=== PATIENT | female | born 1965 | race Caucasian/White ===

== ENCOUNTER 2018-08-27 20:30 | Inpatient (IN) ==
[2018-08-27] MEDS ORDERED: NS 1000 ML 1,000 ML IV ONE ×2 (21:12→22:30)
[2018-08-27] MEDS ORDERED: ZOFRAN INJ 4 MG VIAL ONE (21:15)
[2018-08-27] MEDS ORDERED: ZOFRAN INJ 4 MG VIAL IVP ONE (21:18)
[2018-08-27 21:28] LABS: BILIRUBIN,URINE NEGATIVE (NEGATIVE); BLOOD/HEMOGLOBIN,URINE 4+ (NEGATIVE); GLUCOSE, URINE NEGATIVE (NEGATIVE); KETONES,URINE NEGATIVE (NEGATIVE); LEUKOCYTE ESTERASE ,URINE 3+ (NEGATIVE); NITRITES,URINE POSITIVE (NEGATIVE); PROTEIN,URINE 2+ (NEGATIVE); UROBILINOGEN,URINE NORMAL (NORMAL)
[2018-08-27 21:28] LABS: BASOPHILS # (AUTO) 0.1 X10^3/uL (0.0-0.1); BASOPHILS % (AUTO) 0.7 % (0.2-1.0); EOSINOPHILS % (AUTO) 0.2 % (0.9-2.9); HEMATOCRIT 47.5 % (36.0-47.0); HEMOGLOBIN 15.9 g/dL (12.0-16.0); LYMPHOCYTES # (AUTO) 2.4 X10^3/uL (1.3-2.9); LYMPHOCYTES % (AUTO) 11.9 % (21.0-51.0); MEAN CORPUSCULAR HEMOGLOBIN 29.5 pg (27.0-34.0); MEAN CORPUSCULAR HGB CONC 33.6 g/dL (33.0-35.0); MEAN CORPUSCULAR VOLUME 87.9 fL (80.0-100.0); MONOCYTES # (AUTO) 1.3 x10^3/uL (0.3-0.8); MONOCYTES % (AUTO) 6.6 % (0.0-13.0); NEUTROPHILS # (AUTO) 16.2 x10^3/uL (2.2-4.8); NEUTROPHILS % (AUTO) 80.6 % (42.0-75.0); PLATELET COUNT 257 X10^3/uL (150.0-450.0); RED CELL DISTRIBUTION WIDTH 15.8 % (11.6-16.5); WHITE BLOOD COUNT 20.1 X10^3/uL (3.6-10.0)
[2018-08-27 21:32] VITALS: BMI 38.2
[2018-08-27 21:33] LABS: APPEARANCE,URINE HAZY (CLEAR); BACTERIA,URINE 2+ /HPF (NEGATIVE); COLOR,URINE YELLOW (YELLOW); SQUAMOUS EPITHELIAL CELL,UR RARE /HPF (NEGATIVE)
[2018-08-27 21:46] LABS: CARBON DIOXIDE 22.3 mmol/L (21-32); CREATININE 1.27 mg/dL (0.55-1.02); TROPONIN I 0.34 ng/mL (0-1.5)
[2018-08-27 21:49] LABS: ALBUMIN 3.3 g/dL (3.4-5.0); CKMB % 1.7 % (<4); COR CA(FOR HYPOALB) 9.6 mg/dL (8.5-10.1); CREATINE KINASE MB 1.2 ng/mL (0-4.0); TOTAL PROTEIN 7.8 g/dL (6.4-8.2)
[2018-08-27 22:06] LABS: LACTIC ACID 1.4 mmol/L (0.4-2.0)
--- NOTE | 2018-08-27 22:58 | DR.DIZZY ---
HPI Time seen Time Seen by Provider: 08/27/18 22:48 PCP Primary Care Physician: ELIANE KHAN NP-[place] Complaint Chief Complaint Doctor Comments: Patient presents with complaint of dizziness all day. Nearly passed out today. Admits to ringing in the ears, chills,fever temp of 104. Denies diarrhea. Chief Complaint:: "ALL DAY TODAY I HAVE BEEN DIZZY, HAVING RINGING AND THIS ROARING IN MY EARS, NEARLY PASSED OUT. I TOOK A NAP AFTER WORK, WOKE UP FREEZING TO , MY TEMPERATURE WAS 104.0. I TOOK IBUPROFEN AROUND 1800. I ALSO HAD A KIDNEY STONE OR KIDNEY INFECTION LAST WEEK. I HAVE BEEN HAVING BACK PAIN TODAY TOO." Self Treatment fo Chief Complaint: IBUPROFEN Source History Provided: Patient Mode of Arrival Mode of Arrival: Ambulatory Timing Onset of Chief Complaint: 08/27/18 Symptom Onset: Known Onset of Symptoms Start Date: 08/27/18 Location of Weakness Weakness Location: Generalized Context History of: None Stroke Symptoms: None Associated signs and symptoms Associated Signs and Symptoms: Near Syncope, Vertigo, Weak, Fever, Nausea and Vomiting PMH PMH Past Medical History: Yes Past Medical History: Depression, Hypertension, Hypothyroidism and Kidney Stones Past Surgical History: Yes 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 Surgical History Comment: TUBALIGATION Family History History of Family Medical Conditions: Yes Family Medical History: [place], Coronary Artery Disease and Hypertension Social History Does patient currently use any type of tobacco product: Yes Have you used tobacco products in the last 12 months: Yes Type of Tobacco Use: Cigarettes How many years tobacco product used: 40 Does any household member use tobacco: Yes Alcohol Use: None Do you use any recreational Drugs:: No Lives Where: Home infectious screening In the last 2 months have you had wt loss of >10#?: NO Have you had fever, night sweats or hemotysis?: No Have you traveled outside the country in the last 6 months?: No Isolation: Standard ROS Review of Systems Constitutional: See HPI, Chills and Weakness Eyes: No Symptoms Reported ENTM: No Symptoms Reported and Ear Pain; negative Nose Discharge and Nose Congestion Respiratoy: No Symptoms Reported, Orthopnea and Short of Breath Cardiovascular: No Symptoms Reported Gastrointestinal/Abdominal: No Symptoms Reported Neurological: Headache and Tingling Musculoskeletal: Joint Swelling and Muscle Pain Integumentary: No Symptoms Reported Hematologic/Lymphatic: No Symptoms Reported Endocrine: No Symptoms Reported Psychiatric: No Symptoms Reported All Other Systems: Reviewed and Negative PE Vital Signs Vitals: Temperature 98.3 F Pulse Rate [Apical] 76 Pulse Rate 76 Respiratory Rate 15 Blood Pressure [Left Arm] 126/76 Blood Pressure 126/76 O2 Sat by Pulse Oximetry 96 General Limitations: No Limitations General Appearance: Alert, In No Apparent Distress and Anxious Head Head Exam: Atraumatic and Normocephalic Eyes Eye exam: Normal Appearance, PERRL and EOMI Pupils: Regular, Round: Bilateral Sclera/Conjunctival: Normal Inspection: Bilateral Anterior Chamber: Normal Inspection: Bilateral Posterior Chamber: Deferred: Bilateral ENT ENT Exam: Normal Exam, Normal Oropharynx, Normal External Ear Exam, Mucous Membranes Moist and TM's Normal Bilaterally Neck Neck Exam: Normal Inspection and Full ROM Chest Chest Inspection: Normal Inspection and Symmetric Chest Wall Rise Respiratory Respiratory Exam: Normal Lung Sounds Bilat and Accessory Muscle Use Respiratory Exam: Bilateral: Clear to Auscultation Cardiovascular Cardiovascular Exam: Regular Rate and Normal Rhythm Abdominal Exam Abdominal Exam: Normal Inspection, Normal Bowel Sounds, Soft and Hypoactive Jean Paul l Sounds Rectal Rectal Exam: Deferred Extremeties Extremities Exam: Normal Inspection and Full ROM Back Back Exam: Normal Inspection and Full ROM Neurologic Neurological Exam: Alert, Oriented X3 and CN II-XII Intact Speech: Fluid Speech Cranial Nerve Exam: EOM Function (II, III, IV, ): Normal Psychiatric Psychiatric Exam: Anxious Skin Skin Exam: Warm, Dry, Intact and Normal Color MDM Additional Information Obtained Additional Findings: influenza Differential Diagnosis Differential Diagnosis: Dehydration, Dysrhythmia and Electrolyte disorder COURSE Treatment Treatment: Normal saline, toradol Consultation Called: 23:45 Consultation Comments: Patient discussed with Dr Dorsey concerning admission for urosepsis and tachycardia.He agreed to admit [facility]OR Labs Reviewed Laboratory Results Reviewed?: Yes Result Diagrams: 08/28/18 05:28 08/28/18 05:28 Laboratory: WBC 8.7 X10^3/uL (3.6-10.0) D 08/28/18 05:28 RBC 4.30 X10^6/uL (3.5-5.4) 08/28/18 05:28 Hgb 12.6 g/dL (12.0-16.0) D 08/28/18 05:28 Hct 37.9 % (36.0-47.0) 08/28/18 05:28 MCV 88.1 fL (80.0-100.0) 08/28/18 05:28 MCH 29.3 pg (27.0-34.0) 08/28/18 05:28 MCHC 33.3 g/dL (33.0-35.0) 08/28/18 05:28 RDW 15.4 % (11.6-16.5) 08/28/18 05:28 Plt Count 172 X10^3/uL (150.0-450.0) 08/28/18 05:28 MPV 8.1 fL (7.4-11.0) 08/28/18 05:28 Neut % (Auto) 68.9 % (42.0-75.0) 08/28/18 05:28 Lymph % (Auto) 23.1 % (21.0-51.0) 08/28/18 05:28 [place] % (Auto) 7.2 % (0.0-13.0) 08/28/18 05:28 Eos % (Auto) 0.5 % (0.9-2.9) L 08/28/18 05:28 Baso % (Auto) 0.3 % (0.2-1.0) 08/28/18 05:28 Neut # (Auto) 6.0 x10^3/uL (2.2-4.8) H 08/28/18 05:28 Lymph # (Auto) 2.0 X10^3/uL (1.3-2.9) 08/28/18 05:28 [place] # (Auto) 0.6 x10^3/uL (0.3-0.8) 08/28/18 05:28 Eos # (Auto) 0.0 x10^3/uL (0.0-0.2) 08/28/18 05:28 Baso # (Auto) 0.0 X10^3/uL (0.0-0.1) 08/28/18 05:28 Absolute Nucleated RBC 0.0 /100WBC 08/28/18 05:28 Sodium 142 mmol/L (136-145) 08/28/18 05:28 Corrected Sodium TNP 08/28/18 05:28 Potassium 3.8 mmol/L (3.5-5.1) 08/28/18 05:28 Chloride 107 mmol/L (98-107) 08/28/18 05:28 Carbon Dioxide 28.3 mmol/L (21-32) 08/28/18 05:28 BUN 14 mg/dL (7-18) 08/28/18 05:28 Creatinine 0.83 mg/dL (0.55-1.02) 08/28/18 05:28 Est GFR (MDRD) Af Amer > 60 (>60) 08/28/18 05:28 Est GFR (MDRD) Non-Af > 60 (>60) 08/28/18 05:28 Glucose 93 mg/dL (65-99) 08/28/18 05:28 POC Glucose (mg/dL) 142 mg/dL (65-99) H 08/27/18 23:04 Lactic Acid 0.5 mmol/L (0.4-2.0) 08/28/18 05:28 Calcium 8.0 mg/dL (8.5-10.1) L 08/28/18 05:28 Corrected Calcium 9.3 mg/dL (8.5-10.1) 08/28/18 05:28 Total Bilirubin 0.40 mg/dL (0.2-1.0) 08/28/18 05:28 AST 14 Units/L (15-37) L 08/28/18 05:28 ALT 21 Units/L (12-78) 08/28/18 05:28 Alkaline Phosphatase 99 Units/L (46-116) 08/28/18 05:28 Creatine Kinase 59 Units/L (26-192) 08/27/18 23:14 CK-MB (CK-2) 1.2 ng/mL (0-4.0) 08/27/18 23:14 CK/CKMB % Calc 2.0 % (<4) 08/27/18 23:14 Troponin I 0.30 ng/mL (0-1.5) 08/27/18 23:14 C-Reactive Protein 65.20 mg/L (0-3.0) H 08/27/18 21:42 Total Protein 5.9 g/dL (6.4-8.2) L 08/28/18 05:28 Albumin 2.4 g/dL (3.4-5.0) L 08/28/18 05:28 Globulin 3.5 g/dL (2.5-4.5) 08/28/18 05:28 Albumin/Globulin Ratio 0.7 Ratio (1.1-2.1) L 08/28/18 05:28 Specimen Type Clean catch urine 08/27/18 21:21 Urine Color Yellow (YELLOW) 08/27/18 21:21 Urine Appearance Hazy (CLEAR) 08/27/18 21:21 Urine pH 5.0 (5.0 - 8.0) 08/27/18 21:21 Ur Specific [place] 1.015 (1.000-1.030) 08/27/18 21:21 Urine Protein 2+ (NEGATIVE) 08/27/18 21:21 Urine Glucose (UA) Negative (NEGATIVE) 08/27/18 21:21 Urine Ketones Negative (NEGATIVE) 08/27/18 21:21 Urine Occult Blood 4+ (NEGATIVE) 08/27/18 21:21 Urine Nitrite Positive (NEGATIVE) 08/27/18 21:21 Urine Bilirubin Negative (NEGATIVE) 08/27/18 21:21 Urine Urobilinogen Normal (NORMAL) 08/27/18 21:21 Ur Leukocyte Esterase 3+ (NEGATIVE) 08/27/18 21:21 Urine RBC 10-20 /HPF (NONE SEEN) 08/27/18 21:21 Urine WBC 20-30 /HPF (NONE SEEN) 08/27/18 21:21 Ur Squamous Epith Cells Rare /HPF (NEGATIVE) 08/27/18 21:21 Urine Bacteria 2+ /HPF (NEGATIVE) 08/27/18 21:21 Ur Culture Indicated? Yes/culture set up 08/27/18 21:21 Influenza Type A (PCR) Negative (NEGATIVE) 08/27/18 23:09 Influenza Type B (PCR) Negative (NEGATIVE) 08/27/18 23:09 Other Results Comments: Acute Abdomen: The lungs are clear without consolidation, effusion or pneumothorax. The cardiac and mediastinal contours are within normal limits. Flat plate and upright: Abdomen demonstrates a normal bowel gas patter. No gross free intraperitoneal air. Gallstones are noted. The bony structures are grossly intact. Impression: No acute cardiopulmonary disease. No evidence of acute abdominal pathology and cholelithiasis. XRAY XRAY Interpreted by: Radiologist Diagnosis Discharge Problem: Sepsis due to urinary tract infection, Tachycardia Instructions Instructions: Urosepsis ADDITIONAL NOTES Additional Notes Additional Notes: Urosepsis and SVT
--- NOTE | 2018-08-27 22:59 | RAD ---
HISTORY: Kidney stone/infection Study: Acute abdominal series Comparison: None Findings: The lungs are clear without consolidation, effusion or pneumothorax. The cardiac and mediastinal contours are within normal limits. Flat plate and upright evaluation of the abdomen demonstrates a normal bowel gas pattern. No gross free intraperitoneal air. Gallstones are noted. The bony structures are grossly intact. IMPRESSION: 1. No acute cardiopulmonary disease. 2. No evidence of acute abdominal pathology. 3. Cholelithiasis. Reported By:
[2018-08-27] MEDS: NS 1000 ML 1,000 ML IV SCH (23:29)
[2018-08-27 23:44] LABS: CREATINE KINASE MB 1.2 ng/mL (0-4.0); TROPONIN I 0.3 ng/mL (0-1.5)
[2018-08-27] MEDS ORDERED: ADENOCARD INJ 6 MG ONE (23:55)
[2018-08-27] MEDS ORDERED: ADENOCARD INJ 6 MG IVP ONE (23:55)
[2018-08-28] MEDS ORDERED: TYLENOL 500 MG TAB EXTRA STRENGTH PO PRN
[2018-08-28] MEDS ORDERED: ADENOCARD INJ 6 MG IVP ONE ×2 (00:09→00:21)
[2018-08-28] MEDS ORDERED: ADENOCARD INJ 6 MG ONE (00:14)
[2018-08-28] MEDS ORDERED: NS 1000 ML 1,000 ML ONE (02:29)
[2018-08-28] MEDS ORDERED: LEVAQUIN PREMIX IV 750 MG 750 MG/150 ML BAG IV SCH ×3 (05:00→09:00)
[2018-08-28 06:11] LABS: BASOPHILS % (AUTO) 0.3 % (0.2-1.0); EOSINOPHILS % (AUTO) 0.5 % (0.9-2.9); HEMATOCRIT 37.9 % (36.0-47.0); HEMOGLOBIN 12.6 g/dL (12.0-16.0); LYMPHOCYTES % (AUTO) 23.1 % (21.0-51.0); MEAN CORPUSCULAR HEMOGLOBIN 29.3 pg (27.0-34.0); MEAN CORPUSCULAR HGB CONC 33.3 g/dL (33.0-35.0); MEAN CORPUSCULAR VOLUME 88.1 fL (80.0-100.0); MEAN PLATELET VOLUME 8.1 fL (7.4-11.0); MONOCYTES # (AUTO) 0.6 x10^3/uL (0.3-0.8); MONOCYTES % (AUTO) 7.2 % (0.0-13.0); NEUTROPHILS % (AUTO) 68.9 % (42.0-75.0); PLATELET COUNT 172 X10^3/uL (150.0-450.0); RED CELL DISTRIBUTION WIDTH 15.4 % (11.6-16.5)
[2018-08-28 06:14] LABS: WHITE BLOOD COUNT 8.7 X10^3/uL (3.6-10.0)
[2018-08-28 06:22] LABS: ALANINE AMINOTRANSFERASE 21 Units/L (12-78); ALBUMIN 2.4 g/dL (3.4-5.0); ALKALINE PHOSPHATASE 99 Units/L (46-116); ASPARTATE AMINO TRANSFERASE 14 Units/L (15-37); BLOOD UREA NITROGEN 14 mg/dL (7-18); CARBON DIOXIDE 28.3 mmol/L (21-32); CHLORIDE 107 mmol/L (98-107); COR CA(FOR HYPOALB) 9.3 mg/dL (8.5-10.1); CREATININE 0.83 mg/dL (0.55-1.02); SODIUM 142 mmol/L (136-145); TOTAL PROTEIN 5.9 g/dL (6.4-8.2); eGFR NON BLACK RACES > 60 (>60)
[2018-08-28 07:03] LABS: CKMB % 4.6 % (<4); CREATINE KINASE MB 3.3 ng/mL (0-4.0); TROPONIN I 0.95 ng/mL (0-1.5)
[2018-08-28 07:20] LABS: BILIRUBIN,URINE NEGATIVE (NEGATIVE); BLOOD/HEMOGLOBIN,URINE 2+ (NEGATIVE); GLUCOSE, URINE NEGATIVE (NEGATIVE); KETONES,URINE NEGATIVE (NEGATIVE); LEUKOCYTE ESTERASE ,URINE 2+ (NEGATIVE); NITRITES,URINE NEGATIVE (NEGATIVE); PROTEIN,URINE 1+ (NEGATIVE); UROBILINOGEN,URINE NORMAL (NORMAL)
[2018-08-28 07:27] LABS: APPEARANCE,URINE CLOUDY (CLEAR); COLOR,URINE YELLOW (YELLOW)
[2018-08-28 07:28] LABS: BACTERIA,URINE NEGATIVE /HPF (NEGATIVE); RBC,URINE 0-2 /HPF (NONE SEEN); SQUAMOUS EPITHELIAL CELL,UR RARE /HPF (NEGATIVE)
[2018-08-28] MEDS ORDERED: LOPRESSOR TAB 25 MG PO SCH (09:00)
[2018-08-28] MEDS: FLOMAX PO SCH (09:04)
[2018-08-28] MEDS ORDERED: PREVNAR 13 IM ONE (09:05)
[2018-08-28] MEDS: WELLBUTRIN XL 300 MG (DAILY) PO SCH (09:05)
[2018-08-28] MEDS: SYNTHROID 25 mcg TAB PO SCH (09:05)
[2018-08-28] MEDS ORDERED: PNEUMOVAX 23 IM ONE (11:00)
[2018-08-28] MEDS: NS 1000 ML 1,000 ML IV SCH ×3 (12:47→22:45)
[2018-08-28] MEDS ORDERED: ZOFRAN INJ 4 MG VIAL IVP PRN (14:37)
[2018-08-28] MEDS ORDERED: ZOFRAN INJ 4 MG VIAL ONE (14:40)
[2018-08-28] MEDS ORDERED: LEVAQUIN PREMIX IV 500 MG 500 MG/100 ML BAG IV NR (16:00)
[2018-08-28] MEDS ORDERED: MAALOX or MYLANTA PO PRN (16:23)
[2018-08-28] MEDS ORDERED: MAALOX or MYLANTA ONE (16:26)
[2018-08-28 19:44] LABS: CKMB % 3.8 % (<4); CREATINE KINASE MB 2.2 ng/mL (0-4.0); TROPONIN I 0.48 ng/mL (0-1.5)
--- NOTE | 2018-08-28 21:20 | DR.H&P ---
H&P - History & Physical for Day of: H&P Date: 08/27/18 - Chief Complaint Chief Complaint: DIZZINESS, NEAR SYNCOPE, FEVER, RECENT UTI - History of Present Illness History of Present Illness: IS A 53 YEAR OLD WHITE FEMALE PATIENT OF ELIANE ACOSTA WHO REPORTED TO THE ER TODAY WITH COMPLAINTS OF DIZZINESS, NEAR SYNCOPE, AND FEVER. SHE REPORTS LOWER BACK PAIN TODAY. SHE ALSO REPORTS RECENT TREATMENT FOR A KIDNEY INFECTION AND KIDNEY STONE. SHE WAS TAKING AMOXICILLIN 500MG PO BID FOR 5 DAYS WITHOUT IMPROVEMENT IN SYMPTOMS. ON ARRIVAL, VITALS WERE 98.9-169-16-95%-130/72. LABS WERE OBTAINED. ABNORMAL LAB VALUES INCLUDED THE FOLLOWING: WBC 20.1, HCT 47.5, SODIUM 135, CREATININE 1.27, GLUCOSE 136, ALK PHOS 139, CRP 65.20, ALBUMIN 3.3. A URINALYSIS WAS OBTAINED. IT REVEALED: WBC 20-30, RBC 10-20, LEUKOCYTES 3+, BACTERIA 2+, NITRITES POSITIVE, OCCULT BLOOD 4+. BLOOD AND URINE CULTURE PENDING. AN ABDOMEN XRAY WAS OBTAINED AND REVEALED: No acute cardiopulmonary disease. No evidence of acute abdominal pathology. Cholelithiasis. EKG REVEALED SINUS TACHYCARDIA WITH HR 158. SHE WAS GIVEN ADENOSID 6MG IV X 1. HR DECREASED TO 4. HR THEN INCREASED TO 150. SHE WAS GIVEN ADENOSINE 12MG X 1 GIVEN. HR THEN DECREASED TO THE 80S. SHE WAS ADMITTED TO THE INTENSIVE CARE UNIT FOR FURTHER EVALUATION AND TREATMENT OF UROSEPSIS AND TACHYCARDIA. SHE WAS STARTED ON LEVAQUIN 750MG IV DAILY AND NORMAL SALINE AT 125ML/HR. WE PLAN TO FOLLOW-UP WITH AM LABS AND CONTINUE TO MONITOR. 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 - Family History Family Medical History: [place], Coronary Artery Disease, Hypertension - Social History Does patient currently use any type of tobacco product: Yes Have you used tobacco products in the last 12 months: Yes Type of Tobacco Use: Cigarettes How many years tobacco product used: 40 Does any household member use tobacco: Yes Alcohol Use: None Drug Use: None - Medications Home Medications: iodine Allergy (Verified 08/27/18 21:19) shellfish derived Allergy (Verified 08/27/18 21:19) shrimp Allergy (Verified 08/27/18 21:19) CONTINUE taking the following medications bupropion HCl 300 mg PO DAILY 08/27/18 [History] levothyroxine 25 mcg PO DAILY 08/27/18 [History] metoprolol tartrate 25 mg PO DAILY 08/27/18 [History] tamsulosin 0.4 mg PO DAILY 08/27/18 [History] - Review of Systems Constitutional: Fever, Weakness Eyes: No Symptoms Reported ENT: No Symptoms Reported Respiratory: No Symptoms Reported Cardiovascular: See HPI, Light Headedness Gastrointestinal: No Symptoms Reported Genitourinary: No Symptoms Reported Musculoskeletal: No Symptoms Reported Skin: No Symptoms Reported Neurological: Weakness - Physical Exam Vital Signs: Temperature 99.9 F Pulse Rate [Apical] 82 Pulse Rate 78 Respiratory Rate 39 Blood Pressure [Left Arm] 148/66 Blood Pressure 163/74 O2 Sat by Pulse Oximetry 95 Oriented: Normal Eyes: Normal Ear: Normal Nose: Normal Throat: Normal Respiratory: Diminished Throughout Cardiovascular: Tachycardia : Normal Auscultation: Bowel Sounds: Normal Palpation: Normal Tenderness: Suprapubic, Moderate. negative: Rebound, Guarding, Rigidity Skin: Normal Musculoskeletal: Normal Psychiatric: Normal Mood Description: Calm Affect: Normal Speech Pattern: Clear - Assessment/Plan (1) Sepsis due to urinary tract infection Status: Acute Plan: IV FLUIDS, IV LEVAQUIN, CONTINUE TO MONITOR (2) Tachycardia Status: Resolved Plan: SIMULATION ANALYST, CONTINUE TO MONITOR - Allergies Allergies/Adverse Reactions: Allergies Allergy/AdvReac Type Severity Reaction Status Date / Time iodine Allergy Verified 08/27/18 21:19 shellfish derived Allergy Verified 08/27/18 21:19 shrimp Allergy Verified 08/27/18 21:19
[2018-08-29 01:31] LABS: CKMB % 2.1 % (<4); TROPONIN I 0.35 ng/mL (0-1.5)
[2018-08-29 06:18] LABS: BASOPHILS % (AUTO) 0.5 % (0.2-1.0); EOSINOPHILS % (AUTO) 0.9 % (0.9-2.9); HEMATOCRIT 33.9 % (36.0-47.0); HEMOGLOBIN 11.3 g/dL (12.0-16.0); LYMPHOCYTES # (AUTO) 1.3 X10^3/uL (1.3-2.9); LYMPHOCYTES % (AUTO) 23.9 % (21.0-51.0); MEAN CORPUSCULAR HEMOGLOBIN 29.2 pg (27.0-34.0); MEAN CORPUSCULAR HGB CONC 33.3 g/dL (33.0-35.0); MEAN CORPUSCULAR VOLUME 87.5 fL (80.0-100.0); MEAN PLATELET VOLUME 8.1 fL (7.4-11.0); MONOCYTES # (AUTO) 0.4 x10^3/uL (0.3-0.8); MONOCYTES % (AUTO) 7.8 % (0.0-13.0); NEUTROPHILS # (AUTO) 3.6 x10^3/uL (2.2-4.8); NEUTROPHILS % (AUTO) 66.9 % (42.0-75.0); PLATELET COUNT 128 X10^3/uL (150.0-450.0); RED BLOOD COUNT 3.87 X10^6/uL (3.5-5.4); RED CELL DISTRIBUTION WIDTH 15.5 % (11.6-16.5); WHITE BLOOD COUNT 5.3 X10^3/uL (3.6-10.0)
[2018-08-29 06:44] LABS: ALANINE AMINOTRANSFERASE 22 Units/L (12-78); ALBUMIN 2.4 g/dL (3.4-5.0); ALKALINE PHOSPHATASE 94 Units/L (46-116); ASPARTATE AMINO TRANSFERASE 15 Units/L (15-37); BLOOD UREA NITROGEN 8 mg/dL (7-18); CALCIUM 8.3 mg/dL (8.5-10.1); CARBON DIOXIDE 25.5 mmol/L (21-32); CHLORIDE 106 mmol/L (98-107); CKMB % 2.2 % (<4); COR CA(FOR HYPOALB) 9.6 mg/dL (8.5-10.1); CREATINE KINASE 46 Units/L (26-192); SODIUM 139 mmol/L (136-145); TOTAL PROTEIN 5.9 g/dL (6.4-8.2); TROPONIN I 0.24 ng/mL (0-1.5); eGFR NON BLACK RACES > 60 (>60)
[2018-08-29] MEDS: LEVAQUIN PREMIX IV 750 MG 750 MG/150 ML BAG IV SCH (09:04)
[2018-08-29] MEDS: FLOMAX PO SCH (09:04)
[2018-08-29] MEDS: WELLBUTRIN XL 300 MG (DAILY) PO SCH (09:04)
[2018-08-29] MEDS: NS 1000 ML 1,000 ML IV SCH ×3 (09:04→21:05)
[2018-08-29] MEDS: SYNTHROID 25 mcg TAB PO SCH (09:04)
[2018-08-29] MEDS ORDERED: LANOXIN INJ IVP ONE (09:09)
[2018-08-29] MEDS ORDERED: LANOXIN INJ IVP NR (10:35)
[2018-08-29] MEDS: TOPROL XL PO SCH (10:39)
[2018-08-29] MEDS ORDERED: AMBIEN PO PRN (20:15)
[2018-08-30] MEDS: NS 1000 ML 1,000 ML IV SCH ×3 (02:26→07:52)
[2018-08-30 05:17] LABS: BASOPHILS % (AUTO) 0.5 % (0.2-1.0); EOSINOPHILS # (AUTO) 0.1 x10^3/uL (0.0-0.2); EOSINOPHILS % (AUTO) 1.6 % (0.9-2.9); HEMOGLOBIN 10.9 g/dL (12.0-16.0); LYMPHOCYTES % (AUTO) 27.7 % (21.0-51.0); MEAN CORPUSCULAR HEMOGLOBIN 29.3 pg (27.0-34.0); MEAN CORPUSCULAR HGB CONC 33.1 g/dL (33.0-35.0); MEAN CORPUSCULAR VOLUME 88.3 fL (80.0-100.0); MEAN PLATELET VOLUME 8.3 fL (7.4-11.0); MONOCYTES # (AUTO) 0.3 x10^3/uL (0.3-0.8); NEUTROPHILS # (AUTO) 2.3 x10^3/uL (2.2-4.8); NEUTROPHILS % (AUTO) 61.2 % (42.0-75.0); PLATELET COUNT 108 X10^3/uL (150.0-450.0); RED BLOOD COUNT 3.73 X10^6/uL (3.5-5.4); RED CELL DISTRIBUTION WIDTH 15.4 % (11.6-16.5); WHITE BLOOD COUNT 3.7 X10^3/uL (3.6-10.0)
[2018-08-30 05:35] LABS: ALANINE AMINOTRANSFERASE 24 Units/L (12-78); ALBUMIN 2.3 g/dL (3.4-5.0); ALKALINE PHOSPHATASE 91 Units/L (46-116); ASPARTATE AMINO TRANSFERASE 14 Units/L (15-37); BLOOD UREA NITROGEN 5 mg/dL (7-18); CALCIUM 8.2 mg/dL (8.5-10.1); CARBON DIOXIDE 26.4 mmol/L (21-32); CHLORIDE 106 mmol/L (98-107); COR CA(FOR HYPOALB) 9.6 mg/dL (8.5-10.1); COR NA(FOR HYPERGLY) 142 mmol/L (136-145); SODIUM 141 mmol/L (136-145); TOTAL PROTEIN 5.7 g/dL (6.4-8.2); eGFR NON BLACK RACES > 60 (>60)
[2018-08-30] MEDS: SYNTHROID 25 mcg TAB PO SCH (08:54)
[2018-08-30] MEDS: TOPROL XL PO SCH (08:54)
[2018-08-30] MEDS: WELLBUTRIN XL 300 MG (DAILY) PO SCH (08:54)
[2018-08-30] MEDS: FLOMAX PO SCH (08:54)
[2018-08-30] MEDS: LEVAQUIN PREMIX IV 750 MG 750 MG/150 ML BAG IV SCH (08:54)
[2018-08-30 11:14] VITALS: BP 131/63
== END 2018-08-30 11:50 | disposition home or self-care (01) | DRG 690 ==
LOC: ER 20:50 → ICU 23:53
PROVIDERS: ADMIT Internal Medicine; ATTEND Internal Medicine
DX: R00.0 Tachycardia, unspecified; I25.10 Atherosclerotic heart disease of native coronary artery without angina pectoris; I10 Essential (primary) hypertension; R42 Dizziness and giddiness; R94.31 Abnormal electrocardiogram [ECG] [EKG]; N39.0 Urinary tract infection, site not specified; B96.29 Other Escherichia coli [E. coli] as the cause of diseases classified elsewhere; E03.8 Other specified hypothyroidism; R55 Syncope and collapse
CPT/HCPCS: 36415; 74022; 80053; 80162; 81001; 82550; 82553; 83605; 84484; 85025; 86140; 87040; 87086; 87088; 87186; 87502; 93005; 93041; 96365; 96367; 96374; 96375; 99285; A4216; A4222; J0153; J1160; J1956; J2405; J7030; S0195